=== PATIENT | male | born 1980 | race Caucasian/White ===

== ENCOUNTER 2020-04-19 12:05 | Emergency (ER) | payer BC, SELFPAY ==
--- NOTE | ~2020-04-19 | CT_ITS ---
EXAMINATION: CT FACIAL BONES WITH CONTRAST CLINICAL INFORMATION: Right-sided facial swelling with dental pain. COMPARISON: None TECHNIQUE: CT scan facial bones with sagittal and coronal reconstructions. 85 mL of Omnipaque 350 were given for the study. This CT examination was performed using dose optimization techniques as appropriate, variously including the following: *Automated exposure control *Adjustment of mA and/or kV according to patient size (this includes techniques or standardized protocols for targeted exams where dose is matched to indication/reason for exam; i.e. extremities or head) *Use of iterative reconstruction technique DLP: 418 mGy-cm FINDINGS: There appears to be a periapical abscess about the right maxillary central incisor. There appears to be a region of cortical break anteriorly. This lies adjacent to the maxillary spine. There is adjacent right facial stranding within the fat and edematous change without definite rim enhancing drainable abscess appreciated. Soft tissues swelling is seen to extend overlying the right axilla and inferior orbit. No intraconal abnormality is appreciated. For evaluation of possible small subcutaneous fluid collections ultrasound would be of more benefit compared to CT scan. There are enlarged right submandibular and jugular chain lymph nodes present. There is a smaller region of diminished density about the apex of the left central incisor which may represent a small periapical abscess. There is a large caries seen involving the right maxillary premolar No acute traumatic facial bone fracture is appreciated. The pterygoid plates are intact. The zygomatic arches are intact. The lamina papyracea are intact. The orbital rims are intact. There are mucous retention cyst seen within both maxillary sinuses without bony erosion or expansion. Remainder of the paranasal sinuses are unremarkable. There is mild left sided deviation of the nasal septum. The ostiomeatal complexes are patent with adjacent mucosal thickening.. The lamina papyracea are intact. The ethmoid roofs are symmetric. The carotid canals are normally covered by bone. The mastoid air cells and visualized middle ear cavities are well-aerated. The orbits are normal. The left temporomandibular joint appears unremarkable. There is flattening of the right mandibular condyle. The imaged portions of the brain demonstrate no acute abnormality. CT/CT facial bones w con IMPRESSION: Right maxillary central incisor periapical abscess with some mild cortical expansion of what appears to be an anterior cortical break with adjacent soft tissue swelling involving the right side of the face as described without rim-enhancing abscess appreciated. There is noted to be some submandibular and right jugular enlarged lymph nodes. There is also noted to be a small periapical abscess involving the left maxillary central incisor. Large caries involving the right maxillary premolar. Degenerative change of the right temporomandibular joint with flattening of the mandibular condyle head. Bilateral maxillary sinus disease.
[2020-04-19 12:32] VITALS: BP 188/103; PULSE 71; RESP 18; TEMP 36.3; O2SAT 98; BMI 27.7
--- NOTE | 2020-04-19 13:43 | ED_ITS ---
HPI - Dental/Oral General Chief complaint: Dental/Oral Stated complaint: facial swelling Time Seen by Provider: 04/19/20 13:40 Source: patient Mode of arrival: ambulatory Limitations: no limitations History of Present Illness HPI Narrative: 40-year-old male with past medical history of hypertension, ELSA here with complaints of right-sided facial swelling times 24 hours. The patient is last 2 days he has had right upper dental pain and yesterday with waking he noticed some facial swelling with pain. No fevers or chills or difficulty swallowing or chewing. Patient has not seen a dentist. Related Data Home Medications Medication Instructions Recorded Confirmed tamsulosin 0.4 mg capsule 0.4 mg PO DAILY 02/28/20 Previous Rx's Medication Instructions Recorded blood pressure monitor #1 ea 02/06/20 tamsulosin 0.4 mg capsule 0.4 mg PO DAILY #30 cap 02/28/20 clindamycin HCl 300 mg PO Q8H #21 cap 04/19/20 Allergies Allergy/AdvReac Type Severity Reaction Status Date / Time No Known Allergies Allergy Verified 04/19/20 12:37 [No Known Allergies*] Review of Systems Review of Systems: Yes all other systems are reviewed and are negative Constitutional: Constitutional: Reports no additional constitutional complaints, Denies body ache(s), Denies chills, Denies fever(s), Denies headache(s) and Denies weakness Eyes: Eyes: Reports no additional eye complaints and Denies change in vision ENT: Reports system reviewed and no additional complaints, except as documented, Reports dental pain, Denies dizziness, Denies headache(s), Denies nasal congestion, Denies nasal discharge and Denies neck pain Comments: Facial swelling and pain Cardiovascular: Cardiovascular: Reports no additional cardiovascular complaints, Denies chest pain, Denies leg edema and Denies dyspnea Respiratory: Respiratory: Reports no additional respiratory complaints, Denies cough and Denies dyspnea Gastrointestinal: Gastrointestinal: Reports no additional gastrointestinal complaints, Denies abdominal pain, Denies diarrhea, Denies nausea and Denies vomiting Genitourinary: Genitourinary: Denies urinary incontinence Musculoskeletal: Musculoskeletal: Reports no additional musculoskeletal complaints, Denies back pain, Denies arthralgias, Denies joint swelling, Denies neck pain, Denies numbness and Denies tingling Integumentary/Breasts: Skin/Breast: Reports system reviewed and no additional complaints, except as docu and Denies rash Neurologic: Reports system reviewed and no additional complaints, except as documented, Denies Abnormal speech present, Denies dizziness, Denies headache(s), Denies numbness, Denies tingling and Denies weakness PMFSH Past Medical History Attestation statement: The following information was validated with the patient. Source: old records reviewed and nursing notes reviewed Surgical History No pertinent past surgical history Family History Family History Father No problems noted. Mother No problems noted. Social History Social History Alcohol intake: current Alcohol intake frequency: a few times a month Alcohol type: beer and hard liquor Smoking Status: Current some day smoker Tobacco Type: Cigar Smoked in Last 30 Days: No Use of substances other than those prescribed or required for medical reasons: Yes Substance Use Type: Marijuana Substance Use Frequency: Daily Advance Directives: No Advance Directives Information Provided: Yes Physical Exam Vital Signs: Vital Signs: Last Vital Signs Temp 99.2 F 04/19/20 15:42 Pulse 68 04/19/20 15:42 Resp 14 04/19/20 15:42 BP 190/107 H 04/19/20 15:42 Pulse Ox 99 04/19/20 15:42 Body Mass Index 27.7 Const: General: cooperative, healthy appearing, comfortable and no acute distress Orientation/consciousness: patient oriented x3 Limitations: no limitations HENMT: Head: Yes normal to inspection Ears: hearing grossly normal bilaterally General nose exam: Normal external nose present Face and sinus: Yes normal facial exam Face images: 1. Swelling, erythema, tenderness. No palpable fluctuance or induration. Mouth: Normal oral and palatal mucosa present Teeth image: 1. Extensive dental caries with broken teeth. Just above the gum there is erythema and tenderness but no fluctuance or induration Throat: Yes posterior oropharynx normal Eyes: General: appearance normal, both eyes and all related structures Vi sual Jin: normal visual jin by confrontation Alignment and Position: alignment normal Periorbital: periorbital findings normal Eyelids: Yes eyelids normal Conjunctivae: conjunctivae normal Sclerae: sclerae normal Corneas: corneas normal Pupils: Equal, round and reactive pupils present EOM: EOMs intact bilaterally Neck: Neck: Yes normal visual inspection Chest: Chest palpation & inspection: normal inspection of the chest Resp: Effort & Inspection: normal respiratory effort Auscultation: clear to auscultation bilaterally Cardio: Rate: regular rate Rhythm: regular rhythm Peripheral pulses: Peripheral pulses 2+ throughout GI: Inspection: Yes normal to inspection Palpation (GI): Soft to palpation and nontender Auscultation: normal bowel sounds Back/Spine/Pelvis: Thoracic/Lumbar Spine: thoracic and lumbar spine normal to inspection Skin: General skin exam: no rashes or lesions noted Neuro: General: patient oriented x3, no focal motor deficits and normal sensation to monofilament Cranial nerves: Yes Equal, round and reactive pupils present Cognition (Neuro): normal cognition Speech: No Abnormal speech present Gait exam (Neuro): Normal gait present Motor exam (neuro): 5/5 motor strength present throughout Extrem: General: Yes normal to inspection Course Course Course Narrative: Right upper dental pain now with right facial swelling times several days. No fevers or chills or trismus. Extending to just below the eye but no visual disturbances. EOM intact. No trismus. Will check CT to eval for underlying abscess versus osteomyelitis. 1630-CT shows no drainable abscess. There does appear to be some cellulitis which is likely secondary to a dental infection. Will start patient on oral antibiotics and have him follow-up with dental clinic. Reviewed worrisome signs and symptoms and when to return to the emergency department. Comfortable with discharge home. [facility] - Dental/Oral Medical Records Attestation: I reviewed the patient's medical records. Lab Data Attestation: I reviewed the patient's lab results. Result diagrams: 04/19/20 14:06 04/19/20 14:06 Labs: Lab Results 04/19/20 04/19/20 Range/Units 14:06 14:06 WBC 13.2 H (4.8-10.8) X10*3/uL RBC 5.33 (4.60-5.80) X10*6/uL Hgb 16.5 (14.0-18.0) g/dl Hct 49.2 (42-52) % MCV 92.3 (80-98) fL MCH 31.0 (27.0-33.0) pg MCHC 33.5 (31.0-36.0) g/dl RDW 12.3 (11.0-16.0) % Plt Count 262 (160-400) X10*3/uL MPV 10.4 (9.4-12.4) fL Immature Gran % (Auto) 0.2 (0.0-0.4) % Neut % (Auto) 67.5 (45-73) % Lymph % (Auto) 16.8 L (20-40) % [place] % (Auto) 12.8 H (2-11) % Eos % (Auto) 2.2 (0-4) % Baso % (Auto) 0.5 (0-2) % Lymph # (Auto) 2.2 (1.2-4.9) X10*3/uL [place] # (Auto) 1.7 H (0.1-1.2) X10*3/uL Eos # (Auto) 0.3 (0.0-0.4) X10*3/uL Baso # (Auto) 0.1 (0.0-0.2) X10*3/uL Abs Immat Gran (auto) 0.03 (0.00-0.03) X10*3/uL Absolute Neuts (auto) 8.9 H (2.0-8.3) X10*3/uL Absolute Nucleated RBC 0.000 (0.0-0.012) X10*3/uL Nucleated RBC % (auto) 0.0 (0.0-0.2) /100WBC Smear Tech's Comments VERIFIED Sodium 141 (135-145) mmol/L Potassium 4.7 (3.3-5.1) mmol/L Chloride 103 (96-108) mmol/L Carbon Dioxide 27 (22-29) mmol/L Anion Gap 16 (12-20) BUN 15 (9-16) mg/dL Creatinine 1.06 (0.5-1.4) mg/dL Estim Creat Clear Calc 102.5 Estimated GFR > 60 Random Glucose 91 (60-115) mg/dL Calcium 9.3 (8.4-10.2) mg/dL Imaging Data ct scan facial bones: Attestation: I personally reviewed and interpreted this imaging study as follows: Radiologist's impression: TION: CT FACIAL BONES WITH CONTRAST CLINICAL INFORMATION: Right-sided facial swelling with dental pain. COMPARISON: None TECHNIQUE: CT scan facial bones with sagittal and coronal reconstructions. 85 mL of Omnipaque 350 were given for the study. This CT examination was performed using dose optimization techniques as appropriate, variously including the following: *Automated exposure control *Adjustment of mA and/or kV according to patient size (this includes techniques or standardized protocols for targeted exams where dose is matched to indication/reason for exam; i.e. extremities or head) *Use of iterative reconstruction technique DLP: 418 mGy-cm FINDINGS: There appears to be a periapical abscess about the right maxillary central incisor. There appears to be a region of cortical break anteriorly. This lies adjacent to the maxillary spine. There is adjacent right facial stranding within the fat and edematous change without definite rim enhancing drainable abscess appreciated. Soft tissues swelling is seen to extend overlying the right axilla and inferior orbit. No intraconal abnormality is appreciated. For evaluation of possible small subcutaneous fluid collections ultrasound would be of more benefit compared to CT scan. There are enlarged right submandibular and jugular chain lymph nodes present. There is a smaller region of diminished density about the apex of the left central incisor which may represent a small periapical abscess. There is a large caries seen involving the right maxillary premolar No acute traumatic facial bone fracture is appreciated. The pterygoid plates are intact. The zygomatic arches are intact. The lamina papyracea are intact. The orbital rims are intact. There are mucous retention cyst seen within both maxillary sinuses without bony erosion or expansion. Remainder of the paranasal sinuses are unremarkable. There is mild left sided deviation of the nasal septum. The ostiomeatal complexes are patent with adjacent mucosal thickening.. The lamina papyracea are intact. The ethmoid roofs are symmetric. The carotid canals are normally covered by bone. The mastoid air cells and visualized middle ear cavities are well-aerated. The orbits are normal. The left temporomandibular joint appears unremarkable. There is flattening of the right mandibular condyle. The imaged portions of the brain demonstrate no acute abnormality. CT/CT facial bones w con IMPRESSION: Right maxillary central incisor periapical abscess with some mild cortical expansion of what appears to be an anterior cortical break with adjacent soft tissue swelling involving the right side of the face as described without rim-enhancing abscess appreciated. There is noted to be some submandibular and right jugular enlarged lymph nodes. There is also noted to be a small periapical abscess involving the left maxillary central incisor. Large caries involving the right maxillary premolar. Degenerative change of the right temporomandibular joint with flattening of the mandibular condyle head. Bilateral maxillary sinus disease. Discharge Plan Discharge Clinical Impression: Dental infection, Cellulitis Patient Disposition: Home, Self-Care Instructions: Cellulitis (ED), Toothache (ED) Additional Instructions: Warm compresses 4 times a day Follow-up with dentist Motrin or Tylenol for pain as needed Prescriptions: New clindamycin HCl 300 mg capsule 300 mg PO Q8H Qty: 21 RF: 0 No Action tamsulosin 0.4 mg capsule 0.4 mg PO DAILY RF: 0 tamsulosin 0.4 mg capsule 0.4 mg PO DAILY Qty: 30 RF: 2 (DME) blood pressure monitor [Blood Pressure Kit] Kit See Rx Instructions .ROUTE .MEDSUPPLY Qty: 1 RF: 0 Referrals: Mega Marlow PA-C [Primary Care Provider] - 2 days Interventions: ED Discharge Assessment Last Done: 04/19/20 16:31 Discharge Date/Time: 04/19/20 16:31
[2020-04-19 14:12] LABS: Basophils Absolute Auto 0.1 X10*3/uL (0.0-0.2); Basophils Percent Auto 0.5 % (0-2); Eosinophils Absolute Auto 0.3 X10*3/uL (0.0-0.4); Eosinophils Percent Auto 2.2 % (0-4); Hematocrit 49.2 % (42-52); Hemoglobin 16.5 g/dl (14.0-18.0); Imm Gran Abs Auto 0.03 X10*3/uL (0.00-0.03); Imm Gran Pct Auto 0.2 % (0.0-0.4); Lymphocytes Absolute Auto 2.2 X10*3/uL (1.2-4.9); Lymphocytes Percent Auto 16.8 % (20-40); MANUAL DIFF FLAG SCAN; Mean Corpuscular HGB Conc 33.5 g/dl (31.0-36.0); Mean Corpuscular Volume 92.3 fL (80-98); Mean Platelet Volume 10.4 fL (9.4-12.4); Monocytes Absolute Auto 1.7 X10*3/uL (0.1-1.2); Monocytes Percent Auto 12.8 % (2-11); Neutrophils Absolute Auto 8.9 X10*3/uL (2.0-8.3); Neutrophils Percent Auto 67.5 % (45-73); Platelet Count 262 X10*3/uL (160-400); Red Blood Count 5.33 X10*6/uL (4.60-5.80); Red Cell Distribution Width 12.3 % (11.0-16.0); SCAN SMEAR FLAG 1; White Blood Count 13.2 X10*3/uL (4.8-10.8)
[2020-04-19 14:32] LABS: SLIDE REVIEW VERIFIED
[2020-04-19 14:35] LABS: Anion Gap 16 (12-20); Blood Urea Nitrogen 15 mg/dL (9-16); Calcium 9.3 mg/dL (8.4-10.2); Carbon Dioxide 27 mmol/L (22-29); Chloride 103 mmol/L (96-108); Creatinine Clr Calc Pharmacy 102.5; Estimated Glomerular Filt Rate > 60; Glucose Random 91 mg/dL (60-115); Potassium 4.7 mmol/L (3.3-5.1); Sodium 141 mmol/L (135-145)
[2020-04-19] MEDS: iohexoL 350 MG/ML 100 ML INFUS..BTL IV (15:24)
[2020-04-19] MEDS: Ketorolac Tromethamine 30 MG/ML VIAL IVPUSH (15:39)
[2020-04-19 15:42] VITALS: BP 190/107; PULSE 68; RESP 14; TEMP 37.3; O2SAT 99
--- NOTE | 2020-04-19 16:31 | PC.NURSE ---
list of area dental clinics given at time of dc
== END 2020-04-19 16:31 | disposition home or self-care (01) ==
PROVIDERS: Nurse Practitioner Family; Emergency Provider Emergency Medicine Emergency Medical Services; PCP Physician Assistant
DX: K04.6 Periapical abscess with sinus (principal); L03.211 Cellulitis of face; K02.9 Dental caries, unspecified; M26.69 Other specified disorders of temporomandibular joint; F17.290 Nicotine dependence, other tobacco product, uncomplicated
CPT/HCPCS: 36415; 70487; 80048; 85025; 96374; 99284; J1885; Q9967

== ENCOUNTER 2020-08-21 14:44 | Emergency (ER) | payer BC, SELFPAY ==
[2020-08-21 15:15] VITALS: BP 150/79; PULSE 95; RESP 18; TEMP 36.6; O2SAT 96; BMI 27.0
--- NOTE | 2020-08-21 17:30 | ED_ITS ---
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 patient states uptodate with tetanus. patient has complete range of motion of fi nger. Related Data Home Medications Medication Instructions Recorded Confirmed tamsulosin 0.4 mg capsule 0.4 mg PO DAILY 02/28/20 Previous Rx's Medication Instructions Recorded blood pressure monitor #1 ea 02/06/20 clindamycin HCl 300 mg PO Q8H #21 cap 04/19/20 cetirizine 10 mg tablet 10 mg PO DAILY PRN 90 Days #90 tab 07/29/20 tamsulosin 0.4 mg capsule 0.4 mg PO DAILY #30 cap 08/20/20 cephalexin 500 mg PO QID #28 cap 08/21/20 Allergies Allergy/AdvReac Type Severity Reaction Status Date / Time No Known Allergies Allergy Verified 04/19/20 12:37 [No Known Allergies*] Review of Systems Review of Systems: Yes all other systems are reviewed and are negative Constitutional: Constitutional: Reports as per HPI and Reports no additional constitutional complaints Eyes: Eyes: Reports as per HPI and Reports no additional eye complaints ENT: Reports system reviewed and no additional complaints, except as documented and Reports as per HPI Cardiovascular: Cardiovascular: Reports as per HPI and Reports no additional cardiovascular complaints Respiratory: Respiratory: Reports as per HPI and Reports no additional respiratory complaints Gastrointestinal: Gastrointestinal: Reports as per HPI and Reports no additional gastrointestinal complaints Genitourinary: Genitourinary: Reports no additional male genitourinary complaints and Reports as per HPI Musculoskeletal: Musculoskeletal: Reports no additional musculoskeletal complaints and Reports as per HPI Comments: right thumb lacaeration Neurologic: Reports system reviewed and no additional complaints, except as documented and Reports as per HPI PMFSH Past Medical History Surgical History No pertinent past surgical history Family History Family History Father No problems noted. Mother No problems noted. Social History Social History Alcohol intake: current Alcohol intake frequency: a few times a month Alcohol type: beer and hard liquor Substance Use Type: Marijuana Advance Directives: No Advance Directives Information Provided: Yes Physical Exam Vital Signs: Vital Signs: Last Vital Signs Temp 97.9 F 08/21/20 15:15 Pulse 95 08/21/20 15:15 Resp 18 08/21/20 15:15 BP 150/79 H 08/21/20 15:15 Pulse Ox 96 08/21/20 15:15 Body Mass Index 27.0 Const: General: cooperative, healthy appearing, comfortable, no acute distress, well developed, alert, awake and Physically active Orientation/consciousness: patient oriented x3 HENMT: Head: Yes normal to inspection, Yes No palpable skull fracture present, Yes normocephalic and Yes atraumatic Eyes: General: appearance normal, both eyes and all related structures Neck: Neck: Yes normal visual inspection, Yes full ROM, Yes no lymphadenopathy, Yes no meningeal signs, Yes trachea midline, Yes supple and No tender Chest: Chest palpation & inspection: normal inspection of the chest and normal palpation of entire chest wall Resp: Effort & Inspection: normal respiratory effort and able to speak in complete sentences Auscultation: clear to auscultation bilaterally Cardio: Jugular venous distension: no JVD Heart sounds: S1 normal heart sound present and S2 normal heart sound present GI: Inspection: Yes normal to inspection and No abdominal wall ecchymosis Palpation (GI): Soft to palpation, not firm, nontender, no guarding and not rigid : General: No CVA tenderness and Yes no CVA tenderness Back/Spine/Pelvis: Back: no CVA tenderness, No CVA tenderness and No back tenderness Skin: General skin exam: no rashes or lesions noted and elasticity normal Neuro: General: patient oriented x3, gait normal, no meningeal signs and CN's II-XI intact bilaterally Cranial nerves: Yes CN's II-XII intact bilaterally Extrem: General: Yes normal to inspection and Yes full ROM Hand/finger images: 1. Superficial linear laceration in this area. bleeding resolved. Capiallary refill intact. patient has complete range of motion of finger. negative for tendon injury. Rest of extremity negative for signs of trauama. Motor, neuro, and vascular exam is intact Psych: Appearance: grossly normal, well kempt and not disheveled Course Course Course Narrative: Patinet up to date with tetanus. will repair laceration. Reevaluation(s) Reevaluation #1: Wound cleaned with sterile saline and pivodine iodine. 2% lidocaine used for anesthesia. 6ml used for digital block. Size 4 nylone suture used. 3 sutures were placed. Time: 17:38 MDM - Wound/Laceration MDM Narrative Medical decision making narrative: finger laceration Discharge Plan Discharge Clinical Impression: Laceration Patient Disposition: Home, Self-Care Instructions: Finger Laceration (ED) Additional Instructions: Return to the ED for any pus discharge, redness, foul odor, warmth, black discoloration, or any other conccernning symptoms. REturn to the ED in 10 days for suture removal. Will prescribe keflex to prevent infection from dirty tool object,. Prescriptions: New cephalexin 500 mg capsule 500 mg PO QID Qty: 28 RF: 0 No Action tamsulosin 0.4 mg capsule 0.4 mg PO DAILY RF: 0 cetirizine [Allergy Relief (cetirizine)] 10 mg tablet 10 mg PO DAILY PRN (Reason: allergy symptoms) 90 Days Qty: 90 RF: 0 tamsulosin 0.4 mg capsule 0.4 mg PO DAILY Qty: 30 RF: 2 clindamycin HCl 300 mg capsule 300 mg PO Q8H Qty: 21 RF: 0 (DME) blood pressure monitor [Blood Pressure Kit] Kit See Rx Instructions .ROUTE .MEDSUPPLY Qty: 1 RF: 0 Referrals: Mega Marlow PA-C [Primary Care Provider] - 2 days (Finger laceration repair) Interventions: ED Discharge Assessment Last Done: 08/21/20 18:00 Discharge Date/Time: 08/21/20 18:01 Print Language: Tog[place]
[2020-08-21] MEDS: Lidocaine HCl 2 % MPF 5 ML VIAL INFILTRATI ×2 (17:48)
== END 2020-08-21 18:01 | disposition home or self-care (01) ==
PROVIDERS: Emergency Provider Emergency Medicine; PCP Physician Assistant
DX: S61.011A Laceration without foreign body of right thumb without damage to nail, initial encounter (principal); W27.8XXA Contact with other nonpowered hand tool, initial encounter; Y93.H3 Activity, building and construction; Y92.89 Other specified places as the place of occurrence of the external cause; Y99.0 Civilian activity done for income or pay
CPT/HCPCS: 12001; 99283; 99284